=== PATIENT | male | born 1940 | race Caucasian/White ===

== ENCOUNTER 2024-06-05 12:59 | Outpatient (OUT) | payer MEDICARE, BC, SELFPAY ==
--- NOTE | 2024-06-04 14:34 | VEINCLINIC_ITS ---
Vital Signs 06/05/24 13:11 Height 6 ft Weight 104.326 kg BMI 31.2 Respiration 18 Varicose Veins Patient is an 83 year old male in this day as a referral from Dr. Larson secondary to slow healing wound to right mid leg. Patient had a biopsy months ago which was negative, yet the site has not completely healed. Patient c/o bilateral lower leg pain and edema. Patient states Dr. Larson prescribed bilateral leg knee high compression stockings and since the pain/edema has somewhat subsided. Patient denies any treatment of varicose veins norfamily history of vaircose vein disease. 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 Ace Acosta MD personally performed the services described in this documentation, as scribed by Partha Lopez RN in my presence and it is both accurate and complete. Partha Acosta RN, am scribing for, and in the presence of, Dr. Ace Crockett and in the presence of the patient. thigh: bilateral (right leg > left leg), knee: bilateral, calf: bilateral, ankle: bilateral and duncan: bilateral aching and cramping 3 3 years Worsened in recent months: Yes standing elevating extremities and compression stockings Reports muscle spasms of leg, limb pain and edema History of lower extremity trauma: Yes (skin biopsy to right lower anterior leg) Superficial thrombophlebitis: Yes (post left knee replacement) Family history of varicose veins: no Has patient had previous lower extremity venous surgery: No Patient has previously received the following treatment(s) for lower extremity varicose veins: Reports none Does patient have a history of : not applicable Has patient had lower extremity venous scan with relux testing: No Support hose used: Yes Problems walking or doing physical activity: Yes How does it affect you: edema noted if patient is standing for periods of time Do you walk much: Yes Do you stand much: Yes Review of Systems ROS Narrative Ace Acosta MD personally performed the services described in this documentation, as scribed by Partha Lopez RN in my presence and it is both accurate and complete. Partha Acosta RN, am scribing for, and in the presence of, Dr. Ace Crockett and in the presence of the patient. Status of ROS 10 or more systems reviewed and unremark able except as noted in history and below Cardiovascular Reports: edema Integumentary/Breast Reports: non-healing lesion Neurological Reports: numbness in extremities and weakness in extremities [facility] Medical History (Updated 06/05/24 @ 13:24 by Partha Lopez) Right wrist injury ?S69.91XA - Unspecified injury of right wrist, hand and finger(s), initial encounter (ICD-10) Varicose veins of bilateral lower extremities with pain ?I83.813 - Varicose veins of bilateral lower extremities with pain (ICD-10) Hypercholesteremia ?E78.00 - Pure hypercholesterolemia, unspecified (ICD-10) Hypertension ?I10 - Essential (primary) hypertension (ICD-10) Prostate cancer ?C61 - Malignant neoplasm of prostate (ICD-10) Surgical History (Updated 06/05/24 @ 13:24 by Partha Lopez) History of bilateral knee replacement ?Z96.653 - Presence of artificial knee joint, bilateral (ICD-10) Family History (Updated 06/05/24 @ 13:25 by Partha Lopez) Other Brain aneurysm Social History (Updated 06/05/24 @ 13:26 by Partha Lopez) Within the past year, how often did you have a drink containing alcohol: never Score interpretation: A score less than 4 is consistent with normal alcohol consumption. Smoking status: Never smoker Non-prescribed substance use: denies use Meds Home Medications and Allergies Home Medications ?Medication ?Instructions ?Recorded ?Confirmed ?Type B6 0.85 mg-folic 200 tab PO 06/05/24 History [id number] oral chewable tablet (Neuriva Plus) amlodipine 10 mg tablet (Norvasc) 10 mg PO DAILY 06/05/24 06/05/24 History atorvastatin 40 mg tablet 40 mg PO DAILY 06/05/24 06/05/24 History etodolac 500 mg tablet 500 mg PO BID 06/05/24 06/05/24 History omeprazole 40 mg capsule,delayed 40 mg PO DAILY 06/05/24 06/05/24 History release oxaprozin 600 mg tablet (Daypro) 600 mg PO DAILY 06/05/24 06/05/24 History tamsulosin 0.4 mg capsule (Flomax) 0.4 mg PO DAILY 06/05/24 06/05/24 History tramadol 50 mg tablet 50 mg PO BID 06/05/24 06/05/24 History zolpidem 10 mg tablet (Ambien) 06/05/24 History Allergies Allergy/AdvReac Type Severity Reaction Status Date / Time No Known Drug Allergies Allergy Verified 06/05/24 13:27 Exam Narrative Exam Narrative: Ace Acosta MD personally performed the services described in this documentation, as scribed by Partha Lopez RN in my presence and it is both accurate and complete. Partha Acosta RN, am scribing for, and in the presence of, Dr. Ace Crockett and in the presence of the patient. Constitutional Documenting provider has reviewed patient's vital signs: yes Common normals: oriented x3 Nutritional appearance: overweight Lymph Lymphatic: no lymphedema noted Cardio Peripheral pulses: posterior tibial pulses present and dorsalis pedis pulses present Extremity Common normals: normal capillary refill General: calf tenderness and edema Right lower extremity: lower leg Right lower leg: inspection and palpation Left lower extremity: lower leg Left lower leg: inspection and palpation Neuro Common normals: oriented x3 Results Additional Findings Additional findings: Bilateral leg reflux u/s reveals abnormally dilated right great saphenous vein, right leg perforating veins, and branch saphenous truncal tributary veins. Ace Acosta MD personally performed the services described in this documentation, as scribed by Partha Lopez RN in my presence and it is both accurate and complete. Partha Acosta RN, am scribing for, and in the presence of, Dr. Ace Crockett and in the presence of the patient. Assessment and Plan Assessment and Plan (1) Varicose veins of bilateral lower extremities with pain: Plan Plan is for patient to continue use of bilateral leg compression stockings, exercise, rest, and elevation of bilateral legs/feet. Patient recommended EVLT of right GSV along with right leg perforating veins, and lastly microfoam chemical ablation right leg branch saphenous varicosities. At this time, patient would like to think it over and call us at a future date to move forward with treatments. Ace Acosta MD personally performed the services described in this documentation, as scribed by Partha Lopez RN in my presence and it is both accurate and complete. Partha Acosta RN, am scribing for, and in the presence of, Dr. Ace Crockett and in the presence of the patient.
--- NOTE | 2024-06-04 14:36 | P.DS_ITS ---
Discharge Plan Discharge Disposition: Home, Self-Care Outpatient Diagnostics: VC Endovenous Ablation 1VeinRT (Routine) Timeframe: 2 Weeks Facility: [facility] - Location: Vein Center Ordered By: Ace Crockett Plan of Treatment: EVLT of right GSV Patient Instructions: Endovenous Ablation (GEN) Print Language: Lao Discharge Date/Time: 06/05/24 14:55
--- NOTE | 2024-06-05 13:03 | VEIN_ITS ---
Patient Name: NAWAF BRYANT MR#: [id number] : 1940 Exam Date: 06/05/2024 Ordering Doctor: DR SOSA SPANN M.D. RADIOLOGY REPORT PROCEDURE: VC EXT VENOUS REFLUX RACHAEL LMTD COMPARISON: None. INDICATIONS: I83.813 Bilateral painful varicose veins TECHNIQUE: Duplex imaging of the lower extremity to assess the deep and superficial venous system for the presence of deep or superficial venous incompetence and to document the location and severity of disease. The study includes evaluation of the great saphenous vein (GSV), anterior accessory saphenous vein (AASV) and small saphenous vein (SSV). Patient scanned in reverse Trendelenburg and standing. FINDINGS: RIGHT LOWER EXTREMITY: Saphenofemoral Junction Reflux: Yes 8.9mm 2.3 sec GSV: Diam (mm) Reflux/ Time (sec) Proximal Thigh 8.6 Yes 3.7 Mid Thigh 6.0 Yes 1.4 Distal Thigh 5.0 Yes 1.8 Prox Calf 6.3 No Mid Calf 4.8 Yes 0.9 Saphenopopliteal Junction Reflux: 1.8mm No SSV: Proximal Calf 1.5 No Mid Calf 1.2 No AASV: Proximal Thigh 2.3 No Mid Thigh 2.2 No Distal Thigh Thrombi: No acute or chronic thrombus visualized Compressibility: Normal Flow: 1.5s reflux visualized in FV and 0.9s reflux visualized in Pop V. Preforator: Dist/med calf 3.6 mm with 2.1s reflux. Dist/med calf 3.6mm with 2.5s reflux. Dist/med calf 2.7mm with 0.9s reflux. Tech Note: Incompetent GSV. Patent varicose vein dist/med calf 3.8mm with 1.7s reflux. Patent varicose vein prox/med calf 3.5mm with 1.0s reflux. Patent varicose vein medial knee 3.9mm with 0.7s reflux. Patent varicose vein mid/med thigh 3.9mm with 1.4s reflux. LEFT LOWER EXTREMITY: Saphenofemoral Junction Reflux: Yes 7.5 mm 2.5 sec GSV: Diam (mm) Reflux/Time (sec) Proximal Thigh 5.9 Yes 0.9 Mid Thigh 3.6 Yes 0.8 Distal Thigh 2.0 No Prox Calf 2.8 No Mid Calf 1.8 No Saphenopopliteal Junction Relux: 0.9 mm No SSV: Proximal Calf 0.7 No Mid Calf 0.9 No AASV: Not present Proximal Thigh Mid Thigh Distal Thigh Thrombi: No acute or chronic thrombus visualized Compressibility: Normal Flow: Normal Pasting Machine Offbearer: Mid/med calf 2.0mm with 0s reflux. Tech Note: Incompetent GSV. Patent varicose vein mid/med calf 2.5mm with 2.7s reflux. CONCLUSION: 1. Abnormally dilated right great saphenous vein, associated branch saphenous varicosities, and lower right leg dilated and incompetent lead carpenter veins. 2. Mildly dilated incompetent left great saphenous vein. Dictated by: Ace Crockett M.D. on 06/05/2024 at 14:20 Approved by: Ace Crockett M.D. on 06/05/2024 at 14:42
--- NOTE | 2024-06-05 13:03 | VEIN_ITS ---
Patient Name: NAWAF BRYANT MR#: [id number] : 1940 Exam Date: 06/05/2024 Ordering Doctor: DR SOSA SPANN M.D. RADIOLOGY REPORT PROCEDURE: FACILITY [facility] - OFFICE VISIT INITIAL COMPARISON: None. PROGRESS NOTES: [age] year old male who presents with a 3 year history of lower extremity pain, edema, slow healing wound. The patient's right leg symptoms are worse than the left. There has been a progression of symptoms over time. This increases with prolonged leg dependency. The patient describes an improvement with elevation and compression stockings. The patient denies any signs and symptoms to suggest arterial ischemia. The patient describes a family history of brain aneurysm. The patient has drinking and smoking history of : None. Patient has a past medical history significant for hypertension, cholesterolemia, varicose veins, prostate cancer. The patient denies a history of deep venous thrombus or pulmonary embolus. See separate history and physical for medication list. No prior treatment for varicose or spider veins. Current use of compression stockings. After review of nurse notes, history and physical exam I discussed at length the pathophysiology of venous hypertension and possible treatments, therapies and strategies available. We discussed at length the importance of elevating the lower extremities above the level of the heart, increased physical activity and compression stocking use. Ultrasound venous reflux study performed today was discussed at length with the patient. The report demonstrates abnormally dilated and markedly incompetent right great saphenous vein with multiple incompetent branch saphenous veins and multiple dilated and significantly incompetent cull grader veins within the lower right leg. Mildly dilated and mildly incompetent left great saphenous vein. PHYSICAL EXAM: The right leg demonstrates several varicosities, several scattered spider veins, small nonhealing wound/ ulceration, mild edema, slight skin discoloration. The left leg demonstrates no visible significant varicosities, a few scattered spider veins, no ulceration, mild edema, no significant skin discoloration. Both thighs, legs and feet were symmetrically warm to the touch. Good posterior tibial and dorsalis pedis pulses were present bilaterally. VEIN/ Facility [facility] Comprehensive IMPRESSION: 1. Bilateral lower extremity venous insufficiency 2. Bilateral lower extremity varicose veins 3. Bilateral mild lower extremity subcutaneous edema 4. No flow significant arterial disease 5. CEAP: C6, EP, AP, NM PLAN: 1. Continued use of compression stockings 2. Elevated legs and increased physical activity symptomatic relief 3. Endovenous laser ablation of right great saphenous vein and lower right leg cull grader veins. 4. Microfoam chemical ablation of right leg incompetent branch saphenous varicosities. Nurse notes, history and physical were reviewed and confirmed, see attached forms. The nurse was present throughout the physical exam and consultation Dictated by: Ace Crockett M.D. on 06/05/2024 at 14:42 Approved by: cAe Crockett M.D. on 06/05/2024 at 15:41
[2024-06-05 13:11] VITALS: BMI 31.2
--- NOTE | 2024-06-05 14:54 | P.DS_ITS ---
Discharge Plan Discharge Disposition: Home, Self-Care Outpatient Diagnostics: VC Endovenous Ablation 1VeinRT (Routine) Timeframe: 2 Weeks Facility: [facility] - Location: Vein Center Ordered By: Ace Crockett Plan of Treatment: EVLT of right GSV Patient Instructions: Endovenous Ablation (GEN) Print Language: Greek Discharge Date/Time: 06/05/24 14:55
== END 2024-06-05 14:55 | disposition home or self-care (01) ==
PROVIDERS: PCP Podiatrist Foot & Ankle Surgery; Visit Provider Radiology Diagnostic Radiology
DX: I87.2 Venous insufficiency (chronic) (peripheral) (principal); L03.115 Cellulitis of right lower limb
CPT/HCPCS: 93970; G0463